=== PATIENT | male | born 1990 | race Caucasian/White ===

== ENCOUNTER 2017-04-03 19:02 | Emergency (ER) | payer BC ==
[2017-04-03 19:39] VITALS: BP 142/75; PULSE 80; TEMP 98.9; BMI 38.0
[2017-04-03] MEDS ORDERED: ASPIRIN 81 MG CHEWABLE TABLETS PO ONE (19:44)
--- NOTE | 2017-04-03 19:44 | PDOC ---
Rapid Medical Evaluation Chief Complaint: Chest Pain Time Seen by Provider: 04/03/17 19:38 Medical Evaluation: Vital Signs Temp Pulse Resp BP Pulse Ox 98.9 F 80 18 142/75 100 04/03/17 19:31 04/03/17 19:31 04/03/17 19:31 04/03/17 19:31 04/03/17 19:31 04/03/17 19:39 I Have performed a brief in-person evaluation of this patient. the patient presents with a chief complaint of: chest pain x 5 days. patient reports slight cough associated one episode of SOB yesterday. patient referred to the ED by ANASTACIO STARK for chest pain workup. girlfriend with + mono. pertinent physical exam findings: regular rate. slightly tender chest, breath sounds clear. I have ordered the following:cbc, cmp, cardiac labs, chest xray, EKG the patient will proceed to the ED for further evaluation. 04/03/17 19:46
--- NOTE | 2017-04-03 20:17 | PDOC ---
History of Present Illness - General Chief Complaint: Chest Pain Stated Complaint: CHEST PAIN Time Seen by Provider: 04/03/17 19:38 History Source: Patient Exam Limitations: No Limitations - History of Present Illness Initial Comments: 04/03/17 20:11 Patient is a 27M with no significant medical history here today complaining of chest pain for the past 4-5 days. He describes the pain as a burning or stabbing that radiates to his back. The pain gets worse with palpation, inspiration, and movement of the left arm. He says he feels like he lifted a lot of weights with his left arm, but denies any recent strenuous physical activity. He denies nausea, vomiting, fevers, chills, and diaphoresis. He says he had one episode of shortness of breath. He denies any family history of heart problems at a young age and of sudden unexpected deaths. He denies a history of blood clots, recent immobilization, and leg swelling. He says that he had chickenpox as a child and was never vaccinated for varicella. He reports that his girlfriend was recently diagnosed with mononucleosis. Patient brought EKG from urgent care. Past History - Past Medical History Allergies/Adverse Reactions: Allergies Allergy/AdvReac Type Severity Reaction Status Date / Time No Known Allergies Allergy Verified 04/03/17 19:57 Home Medications: Ambulatory Orders Naproxen [Naprosyn -] 500 mg PO BID #14 tablet 04/03/17 Anemia: No Asthma: No Cancer: No Cardiac Disorders: No CVA: No COPD: No DVT: No Dementia: No Diabetes: No Dialysis: No GI Disorders: No Disorders: No HTN: No Hypercholesterolemia: No Kidney Stones: No Liver Disease: No Psychiatric Problems: No Seizures: No Thyroid Disease: No Lung CA: No Other medical history: Sciatica - Surgical History Abdominal Surgery: No Appendectomy: No Cardiac Surgery: No Cholecystectomy: No Gastric Stapling: No GI Surgery: No Lung Surgery: No Neurologic Surgery: No - Suicide/Smoking/Psychosocial Hx Smoking History: Never smoked Information on smoking cessation initiated: No Hx Alcohol Use: Yes (Occasional wine) Drug/Substance Use Hx: No Substance Use Type: None Review of Systems - Review of Systems Comments:: 04/03/17 20:15 GENERAL/CONSTITUTIONAL: No fever or chills. No weakness. HEAD, EYES, EARS, NOSE AND THROAT: No change in vision. No ear pain or discharge. No sore throat. CARDIOVASCULAR: Positive for chest pain and shortness of breath RESPIRATORY: No cough, wheezing, or hemoptysis. GASTROINTESTINAL: No nausea, vomiting, diarrhea or constipation. GENITOURINARY: No dysuria, frequency, or change in urination. MUSCULOSKELETAL: No joint or muscle swelling or pain. No neck or back pain. SKIN: No rash NEUROLOGIC: No headache, vertigo, loss of consciousness, or change in strength/ sensation. ENDOCRINE: No increased thirst. No abnormal weight change HEMATOLOGIC/LYMPHATIC: No anemia, easy bleeding, or history of blood clots. ALLERGIC/IMMUNOLOGIC: No hives or skin allergy. *Physical Exam - Vital Signs Last Vital Signs Temp Pulse Resp BP Pulse Ox 98.9 F 80 18 142/75 100 04/03/17 19:31 04/03/17 19:31 04/03/17 19:31 04/03/17 19:31 04/03/17 19:31 Heart Score/ECG Review - History History: Slightly suspicious - Electrocardiogram EKG: Normal - Age Age: </= 45 - Risk Factors Risk Factors Heart Score: Yes Hx Obesity Based on the list above the patient has:: 1-2 risk factors - Troponin Troponin: </= normal limit - Score Heart Score - Total: 1 ED Treatment Course - LABORATORY CBC & Chemistry Diagram: 04/03/17 19:48 04/03/17 19:48 Medical Decision Making - Medical Decision Making 04/03/17 20:17 27M with no significant medical history other than obesity here today with atypical chest pain. History more consistent with neuropathic pain. Differential diagnosis includes, but is not limited to: arrhythmia, acs, pneumonia, shingles. Vital signs stable and normal. Heart labs drawn, will evaluate with EKG and CXR. EKG from urgent care shows normal sinus rhythm, normal rate, no st changes, no t -wave abnormalities, normal intervals. Reassuring EKG. 04/03/17 21:04 Laboratory Tests 04/03/17 04/03/17 04/03/17 19:48 19:48 19:48 WBC 10.1 H Hgb 14.3 Hct 42.5 Plt Count 233 INR 1.12 BUN 14 Creatinine 0.9 Troponin I < 0.02 CBC shows small leukocytosis, H/H normal, coags normal, kidney function normal. Trop negative. 04/03/17 21:05 CXR shows no acute cardiopulmonary process. EKG shows normal sinus rhythm, normal rate, no st changes, no t-wave abnormalities, normal intervals. Reassuring EKG. 04/03/17 21:23 PERC negative. Will discharge with PCP follow up this week and give return precautions. Discharged to home. *DC/Admit/Observation/Transfer Diagnosis at time of Disposition: Chest pain - Discharge Dispostion Disposition: HOME Condition at time of disposition: Stable - Prescriptions Prescriptions: Naproxen [Naprosyn -] 500 mg PO BID #14 tablet - Referrals - Patient Instructions Printed Discharge Instructions: DI for Chest Pain Additional Instructions: Please follow-up with your primary care doctor as scheduled next week. Return to the emergency department if you have any new, worsening, or concerning symptoms. - Post Discharge Activity
[2017-04-03 20:24] LABS: BASOPHIL 0.7 % (0-2.0); EOSINOPHIL 1.4 % (0-4.5); MCH 29.4 pg (25.7-33.7); MCHC 33.7 g/dl (32.0-35.9); MEAN CELL VOLUME 87.2 fl (80-96); MEAN PLT VOLUME 9.8 fl (7.5-11.1); NEUTROPHILS 55.4 % (42.8-82.8); PLATELET COUNT 233 K/MM3 (134-434); RDW 13.1 % (11.9-15.9); WHITE BLOOD COUNT 10.1 K/mm3 (4.0-10.0)
[2017-04-03 20:37] LABS: INR 1.12 (0.82-1.09); PROTHROMBIN TIME (PATIENT) 12.6 SEC (9.98-11.88)
[2017-04-03 20:49] LABS: ALBUMIN 3.9 g/dl (3.4-5.0); ANION GAP 8 (8-16); CALCIUM 8.8 mg/dL (8.5-10.1); CO2 28 mmol/L (21-32); CREATININE 0.9 mg/dL (0.7-1.3); GLUCOSE,RANDOM 79 mg/dL (74-106); SGOT/AST 14 U/L (15-37); SGPT/ALT 36 U/L (12-78)
[2017-04-03 20:53] LABS: ALK PHOS 89 U/L (45-117); BILIRUBIN,TOTAL 0.6 mg/dL (0.2-1.0); CPK 79 IU/L (39-308); TOT PROT 7.7 g/dl (6.4-8.2); TROPONIN I < 0.02 ng/ml (0.00-0.05)
--- NOTE | 2017-04-03 21:01 | PDOC ---
Attending Attestation - Resident Resident Name: Eugene Sutherland - ED Attending Attestation I have performed the following: I have examined & evaluated the patient, The case was reviewed & discussed with the resident, I agree w/resident's findings & plan, Exceptions are as noted - HPI HPI: 04/03/17 20:44 27yo M with no significant PMH presents to the ED from urgent care for chest pain. Pt reports L sided CP for 4 -5 days. Reports pain is a stabbing pain from L side of chest to the back. Pain is worse with inspiration and twisting and palpation. Denies associated N/V, SOB, diaphoresis. Pain is constant and doesn' t wax or wane. GF recently diagnosed with mono. Denies headache, focal weakness or numbness, abdominal pain, lower extremity edema or calf pain. Denies trauma. No recent travel or immobility. - Physicial Exam PE: 04/03/17 21:25 GENERAL: Awake, alert, and fully oriented, in no acute distress HEAD: No signs of trauma EYES: PERRLA, EOMI, sclera anicteric, conjunctiva clear ENT: Auricles normal inspection, hearing grossly normal, nares patent, oropharynx clear without exudates. Moist mucosa NECK: Normal ROM, supple, no lymphadenopathy, JVD, or masses LUNGS: Breath sounds equal, clear to auscultation bilaterally. No wheezes, and no crackles HEART: Regular rate and rhythm, normal S1 and S2, no murmurs, rubs or gallops. BP and pulses equal in both arms. +reproducible pinpoint pain over L chest. ABDOMEN: Soft, nontender, normoactive bowel sounds. No guarding, no rebound. No masses EXTREMITIES: Normal range of motion, no edema. No clubbing or cyanosis. No cords, erythema, or tenderness NEUROLOGICAL: Normal speech, cranial nerves intact, negative pronator drift, 5/ 5 strength in all 4 extremities, normal sensation to light touch in all 4 extremities, normal cerebellar exam, normal gait, normal reflexes and tone SKIN: Warm, Dry, normal turgor, no rashes or lesions noted. - Medical Decision Making 04/03/17 21:35 27-year-old male with no significant past medical history presents with 5 days of left-sided chest pain. Vitals are unremarkable. Exam with reproducible chest pain but otherwise unremarkable. Patient does not meet any per criteria and thus unlikely to be PE. Likely musculoskeletal pain given reproducibility and increase of pain with twisting. Will check a troponin to evaluate for myocarditis or ACS although highly unlikely with no risk factors and atypical presentation. Plan: -labs -cxr -toradol -reassess 04/03/17 21:55 Labs negative. X-ray unremarkable on my read. Likely musculoskeletal pain, improvement in pain after Toradol. Patient reports having a follow-up appointment next week. I discussed the physical exam findings, ancillary test results and final diagnoses with the patient. I answered all of the patient's questions. The patient was satisfied with the care received and felt comfortable with the discharge plan and treatment plan. The patient will call their primary care physician within 24 hours to arrange follow-up and will return to the Emergency Department with any new, persistent or worsening symptoms. Discharge Disposition - Diagnosis Chest pain - Discharge Dispostion Disposition: HOME Condition at time of disposition: Stable Admit: No - Referrals - Patient Instructions Printed Discharge Instructions: DI for Chest Pain Additional Instructions: Please follow-up with your primary care doctor as scheduled next week. Return to the emergency department if you have any new, worsening, or concerning symptoms. - Post Discharge Activity Heart Score/ECG Review #1 04/03/17 21:51 Twelve-lead EKG was performed and reviewed by me. Normal sinus rhythm, rate 73. Normal axis and intervals. No ST elevations. Isolated T-wave inversion in lead 3.
[2017-04-03] MEDS ORDERED: KETOROLAC TROMETHAMINE 15 MG/ML VIAL IM ONE (21:34)
[2017-04-03] MEDS ORDERED: KETOROLAC TROMETHAMINE 30 MG/1 ML VIAL ONE (21:42)
--- NOTE | 2017-04-04 10:02 | EKG ---
Test Reason : Blood Pressure : / mmHG Vent. Rate : 073 BPM Atrial Rate : 073 BPM P-R Int : 160 ms QRS Dur : 102 ms QT Int : 390 ms P-R-T Axes : 047 049 035 degrees QTc Int : 429 ms NORMAL SINUS RHYTHM NORMAL ECG NO PREVIOUS ECGS AVAILABLE Confirmed by DEBORA LIU MD ([id number]) on 04/04/2017 10:02:29 AM Referred By: Confirmed By:DEBORA LIU MD
== END 2017-04-03 22:09 | disposition home or self-care (01) ==
LOC: JER 19:02
PROC: 3E0233Z Introduction of Anti-inflammatory into Muscle, Percutaneous Approach (ICD-10-PCS; principal; 2017-04-03)
DX: R78.9 Finding of unspecified substance, not normally found in blood (principal); E66.9 Obesity, unspecified; Z68.38 Body mass index [BMI] 38.0-38.9, adult
CPT/HCPCS: 36415; 71020-TC; 80053; 82550; 84484; 85025; 85610; 93005; 93010; 99283-25

== ENCOUNTER 2025-01-07 06:05 | Day surgery (SDC) | payer BC ==
[2025-01-06 10:53] VITALS: BMI 40.6
[2025-01-07] MEDS ORDERED: ACETAMINOPHEN 500 MG TABLET (FP) PO PRN (08:35)
[2025-01-07 09:39] VITALS: RESP 20
[2025-01-07 11:43] VITALS: BP 117/66; PULSE 78; TEMP 98.3
== END 2025-01-07 11:30 | disposition home or self-care (01) ==
LOC: JASU-SURG 06:05
PROVIDERS: ATTEND Pain Medicine Pain Medicine
PROC: 3E0R3BZ Introduction of Anesthetic Agent into Spinal Canal, Percutaneous Approach (ICD-10-PCS; 2025-01-07)
PROC: 3E0R33Z Introduction of Anti-inflammatory into Spinal Canal, Percutaneous Approach (ICD-10-PCS; principal; 2025-01-07 10:33)
DX: M54.12 Radiculopathy, cervical region (principal)
CPT/HCPCS: 76000-TC-FY